=== PATIENT | male | born 1970 | race Caucasian/White ===

== ENCOUNTER → 2017-11-06 | Outpatient (CLI) | payer OTHER ==
--- NOTE | 2017-11-27 11:16 | SLEEP ---
[address] [address] SLEEP STUDY REPORT Name: RAYMOND PAUL Room: [facility]#: [id number] Admission: 11/06/17 Attend Phys: Thomas Turcios DO Discharge: Date of : 68 Report #: [id number] THIS REPORT FOR: //name// CC: Thomas Turcios This study has been reviewed in its entirety by a board certified sleep specialist REFERRING PHYSICIAN: Thomas Turcios DO. TYPE OF STUDY: Home sleep apnea test. This was a home sleep apnea test with a total recording time 343.7 minutes. During the study, the patient had 5 episodes of obstructive apnea, 6 episodes of hypopneas. The overall apnea-hypopnea index was 2.1. The average O2 saturation during the study was 94%. The patient had occasional episodes of desaturation. The lowest O2 saturation recorded was 87%. Minimal amount of snoring was recorded. Average heart rate was 78 BPM.. IMPRESSION: This home sleep apnea test does not confirm the presence of obstructive sleep apnea. If obstructive sleep apnea is still suspected, recommend in-lab attended polysomnography. <ELECTRONICALLY SIGNED> By: Chris Beach MD 11/27/17 1116 [id number] 1210Chris Beach MD /nt
== END ==
LOC: M.SLEEPLAB 09:00
DX: R06.83 Snoring (principal); K21.9 Gastro-esophageal reflux disease without esophagitis

== ENCOUNTER → 2020-04-26 | Outpatient (CLI) | payer OTHER | LOC: M.LAB 09:49 | PROVIDERS: ATTEND Internal Medicine Gastroenterology | DX: Z20.828 Contact with and (suspected) exposure to other viral communicable diseases (principal); K22.70 Barrett's esophagus without dysplasia; Z12.11 Encounter for screening for malignant neoplasm of colon ==

== ENCOUNTER 2021-05-13 14:48 | Emergency (ER) | payer OTHER ==
[~2021-05-13] VITALS: Ht 175.3 cm; Wt 72.6 kg
[2021-05-13] MEDS ORDERED: NEXIUM 40 MG CA40 M1 PO (15:03)
[2021-05-13] MEDS ORDERED: LISINOPRIL10 MG PO (15:03)
[2021-05-13] MEDS ORDERED: CELEBREX 200 M200 M1 PO (15:03)
[2021-05-13 15:32] LABS: ABSOLUTE EOSINOPHILS 0.2 thou/uL (0.0-0.7); ABSOLUTE LYMPHOCYTES 2.4 thou/uL (0.8-5.3); ABSOLUTE MONOCYTES 0.5 thou/uL (0.0-1.2); ABSOLUTE NEUTROPHILS 4.3 thou/uL (1.6-8.1); BASOPHILS 0.3 %; EOSINOPHILS 2.4 %; HEMATOCRIT 45.7 % (42.0-52.0); HEMOGLOBIN 15.9 gm/dL (14.0-18.0); LYMPHOCYTES 32.4 %; MCH 32.2 pg (26.0-34.0); MCHC 34.8 g/dL (28.0-37.0); MCV 92.5 fL (80.0-100.0); MONOCYTES 6.4 %; MPV 7.7 fl. (7.2-11.1); NUCLEATED RBCS 0 /100WBC; PLATELET COUNT* 182 thou/uL (150-400); POLYS 58.5 %; RBC 4.94 mil/uL (4.50-6.00); RDW-CV 13.4 % (10.5-14.5); WBC 7.4 thou/uL (4.0-11.0)
--- NOTE | 2021-05-13 15:40 | EKG ---
[place] [address] ELECTROCARDIOGRAM REPORT Name: PAULRAYMOND LUCIO Room: [facility]#: [id number] Admission: 05/13/21 Attend Phys: Discharge: Date of : 68 Date of Service: 05/13/21 1449 Report #: [id number] THIS REPORT FOR: //name// [facility] ED Test Date: 2021-05-13 Test Time: 14:49:11 Pat Name: RAYMOND PAUL Department: Room: Gender: Patrol Sergeant: : 1970 Requested By: Shellie Ernandez Order Number: [id number] MD: Juan J Lee Measurements Intervals [place] Rate: 102 P: 74 ID: [id number] QRS: 64 QRSD: 101 T: 55 QT: 337 QTc: 439 Interpretive Statements Sinus tachycardia Consider right atrial enlargement No previous ECG available for comparison Electronically Signed On 05-13-2021 15:40:02 CDT by Juan J Lee [email or web address] <ELECTRONICALLY SIGNED> By: Juan J Lee MD, [facility] 05/13/21 1540 1449 1449 Juan J Lee MD, FACC /EPI
[2021-05-13 16:03] LABS: CREATININE 1.1 mg/dL (0.6-1.3); POTASSIUM 3.9 mmol/L (3.5-5.1)
[2021-05-13] MEDS ORDERED: APAP W/CODEINE1 TA2 PO (16:07)
[2021-05-13] MEDS ORDERED: PROAIR HFA8.5 GM INH (16:07)
[2021-05-13] MEDS ORDERED: TESSALON PERLE100 MG PO (16:07)
[2021-05-13] MEDS ORDERED: PREDNISONE 20 M20 MG PO (16:07)
[2021-05-13] MEDS ORDERED: PROMETHAZI6.25 MG/5 PO (16:07)
[2021-05-13 16:08] LABS: ALBUMIN 4.1 g/dL (3.4-5.0); TOTAL BILIRUBIN 0.7 mg/dL (<0.1-1.0); TOTAL PROTEIN 7.4 g/dL (6.4-8.2)
[2021-05-13 16:18] VITALS: BP 133/83
== END 2021-05-13 16:19 | disposition home or self-care (01) ==
LOC: M.ERS 14:48
PROVIDERS: Physician Assistant
DX: J20.9 Acute bronchitis, unspecified (principal); Z20.822 Contact with and (suspected) exposure to COVID-19; I10 Essential (primary) hypertension; Z98.890 Other specified postprocedural states; Z79.899 Other long term (current) drug therapy

== ENCOUNTER 2021-07-25 09:11 | Emergency (ER) | payer OTHER ==
[~2021-07-25] VITALS: Ht 175.3 cm; Wt 72.6 kg
[~2021-07-25 09:11] MED LIST: APAP W/CODEINE1 TA2 PO; CELEBREX 200 M200 M1 PO; LISINOPRIL10 MG PO; NEXIUM 40 MG CA40 M1 PO; PREDNISONE 20 M20 MG PO; PROAIR HFA8.5 GM INH; PROMETHAZI6.25 MG/5 PO; TESSALON PERLE100 MG PO
[2021-07-25] MEDS ORDERED: CLEOCIN HCL300 MG PO (10:00)
[2021-07-25 10:25] VITALS: BP 125/87
== END 2021-07-25 10:25 | disposition home or self-care (01) ==
LOC: M.ERS 09:11
DX: L02.212 Cutaneous abscess of back [any part, except buttock and flank] (principal); I10 Essential (primary) hypertension; Z79.899 Other long term (current) drug therapy